=== PATIENT | male | born 1965 | race African-American/Black ===

== ENCOUNTER 2023-08-09 01:27 | Emergency (ER) | payer SELFPAY ==
[2023-08-09 01:36] VITALS: PULSE 65; BMI 24.8
[2023-08-09] MEDS ORDERED: KETOROLAC TROMETHAMINE 15 MG/ML VIAL IM ONE (03:51)
[2023-08-09] MEDS ORDERED: LIDOCAINE 5% TOPICAL PATCH TP ONE (03:51)
[2023-08-09] MEDS ORDERED: DEXAMETHASONE SOD PHOSPHATE 10 MG/1 ML VIAL IM ONE (03:51)
[2023-08-09] MEDS ORDERED: diazePAM 5 MG TABLET PO ONE (03:52)
[2023-08-09] MEDS ORDERED: KETOROLAC TROMETHAMINE 30 MG/1 ML VIAL ONE (04:09)
[2023-08-09] MEDS ORDERED: DEXAMETHASONE SOD PHOSPHATE 10 MG/1 ML VIAL ONE (04:09)
[2023-08-09] MEDS ORDERED: LIDOCAINE 4% PATCH TP ONE (04:09)
[2023-08-09] MEDS ORDERED: diazePAM 5 MG TABLET ONE (04:09)
[2023-08-09 04:57] VITALS: BP 103/56; RESP 17; TEMP 97.3
[2023-08-09] MEDS ORDERED: LIDOCAINE PATCH REMOVAL MC SCH (22:00)
== END 2023-08-09 07:30 | disposition home or self-care (01) ==
LOC: JER 01:27
PROC: 3E0233Z Introduction of Anti-inflammatory into Muscle, Percutaneous Approach (ICD-10-PCS; principal; 2023-08-09)
PROC: 3E023GC Introduction of Other Therapeutic Substance into Muscle, Percutaneous Approach (ICD-10-PCS; 2023-08-09)
DX: M79.604 Pain in right leg (principal); G89.29 Other chronic pain; M54.9 Dorsalgia, unspecified; M25.551 Pain in right hip; M25.561 Pain in right knee; M54.31 Sciatica, right side
CPT/HCPCS: 72131-TC; 72192-TC; 99284-25; J1100